=== PATIENT | male | born 1990 | race Caucasian/White ===

== ENCOUNTER 2021-02-08 18:54 | Emergency (ER) | payer OTHER, SELFPAY ==
[2021-02-08 18:55] VITALS: PULSE 112; RESP 18; TEMP 36.7; O2SAT 96; BMI 32.5
--- NOTE | 2021-02-08 18:59 | XRR_ITS ---
PROCEDURE INFORMATION: Exam: XR Right Ankle Exam date and time: 02/08/2021 7:00 PM Age: 30 years old Clinical indication: Injury or trauma; Fall; Blunt trauma; Ankle; Right; Additional info: Right ankle injury TECHNIQUE: Imaging protocol: XR Right ankle. Views: 3 or more views. COMPARISON: No relevant prior studies available. FINDINGS: Bones/joints: Acute, nondisplaced oblique fracture of the fibular metaphysis at the level of the syndesmosis. The remaining osseous structures are intact. The joint spaces are maintained. Soft tissues: Mild soft tissue swelling. XR/XR ankle RT min 3V* [id number] IMPRESSION: 1. Acute, nondisplaced oblique fracture of the fibular metaphysis at the level of the syndesmosis. 2. No widening of the ankle mortise on this exam.
[2021-02-08 19:00] VITALS: BP 134/104
--- NOTE | 2021-02-08 19:00 | W.ED.EXTPRO ---
HPI - Extremity Problem General: Chief complaint: Extremity Injury, Lower Stated complaint: LEG INJURY Time Seen by Provider: 02/08/21 18:54 Source: patient Mode of arrival: ambulatory Limitations: no limitations History of Present Illness: HPI Narrative: Patient was playing football this afternoon and twisted his right ankle. Patient reports it turned inward on him and he felt a pop. Patient denies any other injury. Patient appears well. Patient appears in mild to moderate pain. Patient reports mild pain at this time while at rest. Patient does have a history of hypertension. MD Complaint: joint pain Onset (ago): minute(s) Location: right and lower extremity (Ankle) Severity scale (1-10): 5 Relieving factors: rest Associated symptoms: Reports no associated symptoms Review of Systems General: Reports: 10 or more systems reviewed and unremarkable except in HPI and below Musc: Reports: joint pain (Right ankle injury) Physical Exam Const: COMMON NORMALS: no acute distress and patient oriented x3 GENERAL APPEARANCE: cooperative HENMT: COMMON NORMALS: normocephalic and Normal external nose present HEAD & SCALP: normal to inspection and normocephalic NOSE: Normal external nose present Eye: GENERAL EYE: appearance normal, both eyes and all related structures Neck/C-Spine: COMMON NORMALS: full ROM Chest: COMMONS NORMALS: normal inspection of the chest Resp: COMMON NORMALS: normal respiratory effort EFFORT & INSPECTION: Yes able to speak in complete sentences Cardio: COMMON NORMALS: regular rate and regular rhythm RATE: regular rate RHYTHM: regular rhythm GI: COMMON NORMALS: non-tender Back/Pelvis: COMMON NORMALS: thoracic and lumbar spine normal to inspection Extremity: NARRATIVE EXTREMITY EXAM: Bilateral ankle tenderness, minimal swelling, positive pulses. Normal sensation. No pain to the foot or knee area of the right lower extremity. Neuro: COMMON NORMALS: patient oriented x3 and moves all extremities Psych: COMMON NORMALS: mental status grossly normal and cooperative Skin: COMMON NORMALS: no rashes or lesions noted GENERAL SKIN EXAM: no rashes or lesions noted Course Vital Signs: Vital signs: Vital Signs Temperature 98.0 F 02/08/21 18:55 Pulse Rate 108 H 02/08/21 19:01 Respiratory Rate 18 02/08/21 18:55 Blood Pressure 134/104 02/08/21 19:00 Pulse Oximetry 96 02/08/21 18:55 MDM - Extremity (Nontraumatic) MDM Narrative: Medical decision making narrative: Patient was brought in by EMS for concerns of injury to the right ankle. Patient was playing football and twisted his ankle. Patient reports mild to moderate pain. Exam notes tenderness to the ankle joint. Pulses are intact. Cap refill is intact distally. Sensation is normal. No pain is noted to the foot on palpation. No pain is noted to the knee area on palpation. Differential diagnosis includes not limited to fracture, sprain, muscle strain. Patient has a nondisplaced distal fibular shaft fracture. Patient will be placed in a stirrup splint and crutches. Patient should follow-up with orthopedics on Wednesday or Wednesday. Patient reports understanding and will follow up with his local orthopedist. Case management request was replaced to ensure follow-up. Imaging Data^: Xray Ortho: Attestation: I personally reviewed and interpreted this imaging study as follows: (Right ankle notes a nondisplaced fracture of the distal shaft of the fibula.) Discharge Plan Discharge Patient Disposition: Home Clinical Impression: Fracture of distal fibula Qualifiers: Encounter type: initial encounter Fracture type: closed Fracture morphology: unspecified fracture morphology Laterality: right Qualified Code(s): S82.831A - Other fracture of upper and lower end of right fibula, initial encounter for closed fracture Condition: Stable Prescriptions: No Action No Known Home Medications RF: 0 Discharge Orders: Discharge ED (Routine); Ordered 02/08/21 Ordered By: Lewis Gibson Discharge Diet: Usual diet Discharge Activity: Limit activity as instructed and Use walker/crutches as instructed Patient Instructions: Splint Care (ED), Opioid Safety Stand Alone Forms: Work/School Release Coding Level of Care Code ED [employer] for [employer] Fwd Exam Comprehensive
[2021-02-08 19:01] VITALS: PULSE 108
[2021-02-08] MEDS: ketorolac 30 mg/mL INJ 15 MG IVP (19:08)
[2021-02-08 19:56] VITALS: BP 124/62; PULSE 102; RESP 16; O2SAT 98
--- NOTE | 2021-02-10 12:16 | DCPLANNER ---
post office manager had message to schedule a follow up appointment for patient with ortho. post office manager called the ortho clinic, spoke with Jessica, gave clinic patients information. post office manager was told that patients information would be printed and reviewed. Clinic will call patient with appointment information.
--- NOTE | 2021-02-11 11:48 | DCPLANNER ---
Jessica from ortho called patient case coordinator stating that patient was not from this area, and would like to be referred to [place], closer to where he lives. dairy department manager called and spoke with patient, he stated that he would like to be referred to [facility] in [place]. dairy department manager called the ortho with [facility], and faxed patients information to the clinic. Clinic will call patient with appointment information.
--- NOTE | 2021-02-13 09:01 | DCPLANNER ---
Patient has a follow up appointment scheduled for January at 3:[address] Thomason at [facility]. Clinic will contact patient with appointment information.
== END 2021-02-08 19:57 | disposition home or self-care (01) ==
PROVIDERS: Emergency Provider Nurse Practitioner Family
DX: S82.831A Other fracture of upper and lower end of right fibula, initial encounter for closed fracture (principal); X50.1XXA Overexertion from prolonged static or awkward postures, initial encounter
CPT/HCPCS: 29515; 73610; 96372; 96374; 99283; E0114; J1885